=== PATIENT | female | born 1985 | race Caucasian/White ===

== ENCOUNTER 2016-11-07 09:02 | Emergency (ER) | payer SELFPAY ==
[2016-11-07 09:52] VITALS: BP 98/72
--- NOTE | 2016-11-07 10:08 | UC ---
Throat Pain/Nasal Eliezer HPI - HPI Summary HPI Summary: Has been having nasal eliezer, PND, sneezing, "allergy symptoms" for a few days. Yesterday ST suddenly worsened, saw white spots on tonsils. Is not taking anything for allergies except benadryl because she is 11 weeks . - History of Current Complaint Hx Obtained From: Patient Hx Last Menstrual Period: 12/07/15 ?: Yes Onset/Duration: Gradual Onset, Lasting Days Cough: None Associated Signs & Symptoms: Positive: Nasal Discharge. Negative: Fever, Vomiting, Rash <Dipti Sepulveda - Last Filed: 11/07/16 10:24> <Janine Trevino - Last Filed: 11/07/16 11:29> - History of Current Complaint Chief Complaint: UCGeneralIllness Stated Complaint: URI, THROAT PAIN Time Seen by Provider: 11/07/16 09:59 - Allergies/Home Medications Allergies/Adverse Reactions: Allergies Allergy/AdvReac Type Severity Reaction Status Date / Time Prochlorperazine Allergy Anaphylatic Verified 11/07/16 09:52 [From Compazine] Shock SEASONAL ALLERGIES Allergy Coughing Uncoded 11/07/16 09:52 Home Medications: Home Medications Homeopathic Products [Zicam Allergy Relief] 1 tab PO Q6HR PRN 11/07/16 [History Confirmed 11/07/16] [place]-3 Fatty Acids [Fish Oil] 1 tab PO DAILY 11/07/16 [History Confirmed ] Multivit-Min W/Fe-FA [ and Iron] 1 tab PO DAILY 11/07/16 [ History Confirmed 11/07/16] PMH/Surg Hx/FS Hx/Imm Hx Endocrine History Of: Denies: Diabetes, Thyroid Disease Cardiovascular History Of: Denies: Hypertension, Pacemaker/ICD Respiratory History Of: Denies: Asthma GI/ History Of: Denies: Kidney Stones Neurological History Of: Denies: Seizures, Migraine Psychological History Of: Reports: Anxiety - Surgical History Surgical History: Yes Surgery Procedure, Year, and Place: D&C 2014 - Family History Known Family History: Positive: Unknown - Social History Alcohol Use: Rare Substance Use Type: None Smoking Status (MU): Never Smoked Tobacco - Immunization History Most Recent Influenza Vaccination: NEVER Most Recent Tetanus Shot: UTD <Dipti Sepulveda - Last Filed: 11/07/16 10:24> Review of Systems Constitutional: Negative Skin: Negative Eyes: Negative ENT: Sore Throat, Nasal Discharge Respiratory: Negative Cardiovascular: Negative Gastrointestinal: Negative Genitourinary: Negative Motor: Negative Neurovascular: Negative Musculoskeletal: Negative Neurological: Negative Psychological: Negative All Other Systems Reviewed And Are Negative: Yes <Dipti Sepulveda - Last Filed: 11/07/16 10:24> Physical Exam Triage Information Reviewed: Yes Appearance: Well-Appearing Vital Signs: Initial Vital Signs Temp 99.2 F 11/07/16 09:44 Pulse 76 11/07/16 09:44 Resp 20 11/07/16 09:44 BP 98/72 11/07/16 09:44 Pulse Ox 100 11/07/16 09:44 Vital Signs Reviewed: Yes Eye Exam: Normal Eyes: Positive: Conjunctiva Clear ENT: Positive: Nasal congestion, TMs normal. Negative: Pharyngeal erythema, Tonsillar swelling, Tonsillar exudate Dental Exam: Normal Neck exam: Normal Neck: Positive: Supple, Nontender, No Lymphadenopathy Respiratory Exam: Normal Respiratory: Positive: Chest non-tender, Lungs clear, Normal breath sounds, No respiratory distress, No accessory muscle use Cardiovascular Exam: Normal Cardiovascular: Positive: RRR, No Murmur Musculoskeletal Exam: Normal Neurological Exam: Normal Neurological: Positive: Alert Psychological Exam: Normal Skin Exam: Normal <Dipti Sepulveda - Last Filed: 11/07/16 10:24> Vital Signs: Initial Vital Signs Temp 99.2 F 11/07/16 09:44 Pulse 76 11/07/16 09:44 Resp 11/07/16 09:44 BP 98/72 11/07/16 09:44 Pulse Ox 100 11/07/16 09:44 <Janine Trevino - Last Filed: 11/07/16 11:29> Throat Pain/Nasal Course/Dx - Differential Dx/Diagnosis Provider Diagnoses: allergic rhinitis. URI, likely viral <Dipti Sepulveda - Last Filed: 11/07/16 10:24> Discharge <Dipti Sepulveda - Last Filed: 11/07/16 10:24> <Janine Trevino - Last Filed: 11/07/16 11:29> - Discharge Plan Condition: Stable Disposition: HOME Patient Education Materials: Upper Respiratory Infection (ED), Allergic Rhinitis (ED) Referrals: Non Staff,Doctor [Primary Care Provider] - Additional Instructions: Rapid strep negative. As we discussed, diphenhydramine (benadryl) is category B. Topical steroid sprays, such as flonase or nasocort are also considered quite safe for allergy symptoms during . Call or return if you develop increasing fever, shortness of breath, chest pain , bloody sputum, or otherwise worsen. If you have not improved at all after several days, contact your primary care physician or return here. Attestation Statement User Type: Provider - I was available for consult. This patient was seen by the CHRISTOPHER. The patient was not presented to, seen by, or examined by me. -Nataliia <Janine Trevino - Last Filed: 11/07/16 11:29>
== END 2016-11-07 10:38 | disposition home or self-care (01) ==
LOC: UCEAST 09:02
DX: O26.891 Other specified pregnancy related conditions, first trimester (principal); J30.9 Allergic rhinitis, unspecified; J06.9 Acute upper respiratory infection, unspecified; O99.341 Other mental disorders complicating pregnancy, first trimester; F41.9 Anxiety disorder, unspecified; Z3A.11 11 weeks gestation of pregnancy
CPT/HCPCS: 87651; 99211; G0463

== ENCOUNTER 2017-02-01 18:31 | Emergency (ER) | payer MEDICAID, OTHER ==
--- NOTE | 2017-02-01 20:16 | RAD ---
HISTORY: Right leg pain COMPARISONS: None relevant TECHNIQUE: Multiple transverse and longitudinal ultrasound images were obtained of the right lower extremity from the level of the common femoral vein inferiorly through to the infrapopliteal veins using grayscale, color Doppler, and spectral Doppler imaging with and without compression and with augmentation. Comparison images were obtained of the contralateral common femoral vein. FINDINGS: VEINS: The venous system of the right lower extremity is compressible throughout its course, with normal flow on color Doppler imaging and normal response to augmentation on spectral Doppler imaging. SOFT TISSUES: Unremarkable. OTHER FINDINGS: None. IMPRESSION: NO RIGHT LOWER EXTREMITY DEEP VEIN THROMBOSIS
--- NOTE | 2017-02-01 20:30 | ED ---
Baltazar Worley Thomas, scribed for Eric Castaneda MD on 02/01/17 at 1951 . Lower Extremity - HPI Summary HPI Summary: The pt is a 31 y/o F who is 23.5 weeks and referred to the ED by her OBGYN to rule out DVT to her R leg. In the ED, she complaints of R thigh and groin pain that began two weeks ago but worsened 5 days ago. She additionally c/ o redness to her RLE (began 2 weeks ago but worsened five days ago) and swelling to her groin. She denies calf tenderness. The pt rates the pain 4/10. The pain is aggravated by movement and alleviated by nothing. The patient has treated the pain with a stocking DOCUMENT REVIEWER. PMHx: anxiety. PSHx: D&C (2014). SHx: no smoking, rare alcohol use, no illicit drug use. G=2, P=0. - History of Current Complaint Chief Complaint: EDExtremityLower Stated Complaint: 23 1/2 WKS PREG/CRAMPING/PAIN RT LEG Time Seen by Provider: 02/01/17 19:28 Hx Obtained From: Patient, Family/Civil Transportation Engineer - in room Hx Last Menstrual Period: 12/07/15 Onset of Pain: Days - two weeks Onset/Duration: Worse Since - 5 days ago Pain Intensity: 4 Pain Scale Used: 0-10 Numeric Timing: Constant Associated Signs And Symptoms: Positive: Swelling - to her groin, Redness - on her RLE Aggravating Factor(s): Movement Alleviating Factor(s): Nothing Related History: Other - 23.5 weeks - Allergies/Home Medications Allergies/Adverse Reactions: Allergies Allergy/AdvReac Type Severity Reaction Status Date / Time Prochlorperazine Allergy Anaphylatic Verified 11/07/16 09:52 [From Compazine] Shock SEASONAL ALLERGIES Allergy Coughing Uncoded 11/07/16 09:52 PMH/Surg Hx/FS Hx/Imm Hx Previously Healthy: No Endocrine/Hematology History: Denies: Hx Bone Marrow Disease, Hx Diabetes, Hx Sickle Cell Disease, Hx Thyroid Disease, Hx Anemia Cardiovascular History: Denies: Hx Hypertension, Hx Pacemaker/ICD Respiratory History: Denies: Hx Asthma, Hx Sleep Apnea GI History: Denies: Hx Cirrhosis, Hx Crohn's Disease, Hx Gastroesophageal Reflux Disease , Hx Irritable Bowel History: Denies: Hx Kidney Infection, Hx Kidney Stones Musculoskeletal History: Denies: Hx Arthritis, Hx Bursitis, Hx Tendonitis Sensory History: Reports: Hx Contacts or Glasses - CONTACTS Denies: Hx Hearing Aid Opthamlomology History: Reports: Hx Contacts or Glasses - CONTACTS Neurological History: Denies: Hx Headaches, Hx Migraine, Hx Nerve Disease, Hx Seizures Psychiatric History: Reports: Hx Anxiety Denies: Hx Panic Disorder - Surgical History Surgery Procedure, Year, and Place: D&C 2014 Infectious Disease History: No Infectious Disease History: Denies: Hx Hepatitis, History Other Infectious Disease, Traveled Outside the [place] in Last 30 Days - Family History Known Family History: Negative: Other - NEG: blood clots - Social History Alcohol Use: Rare Substance Use Type: Reports: None Smoking Status (MU): Never Smoked Tobacco Review of Systems Positive: Other - POS: R thigh pain, R groin pain, swelling to groin; NEG: calf tenderness Positive: Other - POS: redness to RLE All Other Systems Reviewed And Are Negative: Yes Physical Exam Triage Information Reviewed: Yes Vital Signs On Initial Exam: Initial Vitals Temp Pulse Resp BP Pulse Ox 99.8 F 92 20 123/67 98 02/01/17 18:38 02/01/17 18:38 02/01/17 18:38 02/01/17 18:38 02/01/17 18:38 Vital Signs Reviewed: Yes Appearance: Positive: Well-Appearing, No Pain Distress Skin: Positive: Warm Head/Face: Positive: Normal Head/Face Inspection Eyes: Positive: HENNY ENT: Positive: Hearing grossly normal Respiratory/Lung Sounds: Positive: Breath Sounds Present Abdomen Description: Positive: Soft, Other: - gravid Bowel Sounds: Positive: Present Musculoskeletal: Positive: Other - mild rt calf tenderness. Negative: Raoul Sign Left, Raoul Sign Right Neurological: Positive: Sensory/Motor Intact, Normal Gait Psychiatric: Positive: Affect/Mood Appropriate - Nancy Coma Scale Coma Scale Total: 15 Diagnostics - Vital Signs Vital Signs Temp Pulse Resp BP Pulse Ox 02/01/17 19:30 98.1 F 93 18 121/73 99 02/01/17 18:38 99.8 F 92 20 123/67 98 - Laboratory Lab Statement: Any lab studies that have been ordered have been reviewed, and results considered in the medical decision making process. - Additional Comments Diagnostic Additional Comments: Venous Doppler. Interpreted by radiologist. Impression: No evidence of DVT on RLE Re-Evaluation - Re-Evaluation First Eval Re-Evaluation Time: 20:44 Change: Improved - results d/w pt Lower Extremity Course/Dx - Course Assessment/Plan: The pt is a 31 y/o F who is 23.5 weeks and referred to the ED by her OBGYN to rule out DVT to her R leg. In the ED, she complaints of R thigh and groin pain that began two weeks ago but worsened 5 days ago. She additionally c/o redness to her RLE (began 2 weeks ago but worsened five days ago) and swelling to her groin. She denies calf tenderness. The pt rates the pain 4/10. The pain is aggravated by movement and alleviated by nothing. The patient has treated the pain with a stocking DOCUMENT REVIEWER. PMHx: anxiety. PSHx: D&C (2014 ). SHx: no smoking, rare alcohol use, no illicit drug use. G=2, P=0. Venous Dooppler reveals no evidence for DVT. ED physician has reviewed this radiology report and agrees. Patient is diagnosed with leg pain. Patient will be discharged home with follow up by OBGYN. Patient is agreeable to this plan. - Diagnoses Provider Diagnoses: Leg pain Discharge - Discharge Plan Condition: Stable Disposition: HOME Patient Education Materials: Leg Pain (ED) Referrals: Non Staff,Doctor [Primary Care Provider] - Additional Instructions: Follow up with your OBGYN. The documentation as recorded by the Baltazar boateng Thomas accurately reflects the service I personally performed and the decisions made by me, Eric Castaneda MD.
[2017-02-01 20:56] VITALS: BP 101/59
== END 2017-02-01 20:57 | disposition home or self-care (01) ==
LOC: ED 18:31
DX: M79.651 Pain in right thigh (principal); M79.606 Pain in leg, unspecified
CPT/HCPCS: 99282

== ENCOUNTER 2017-05-18 05:28 | Inpatient (IN) | payer OTHER ==
[2017-05-18] MEDS ORDERED: OBEPIDURAL* 250 ML ONE (07:17)
[2017-05-18 07:35] LABS: Hematocrit 31 % (35-47); Hemoglobin 10.9 g/dl (12.0-16.0); Mean Corpuscular HGB Conc 35 g/dl (31-36); Mean Corpuscular Hemoglobin 30 pg (27-31); Mean Corpuscular Volume 86 fL (80-97); Mean Platelet Volume 10 um3 (7.4-10.4); Red Blood Count 3.63 10^6/ul (4.0-5.4); Red Cell Distribution Width 12 % (10.5-15); White Blood Count 7.7 10^3/ul (3.5-10.8)
[2017-05-18] MEDS ORDERED: Phenylephrine IV* 40 MCG/ML 10 ML SYRINGE IV PUSH PRN ×2 (08:27)
[2017-05-18] MEDS ORDERED: OBEPIDURAL* 250 ML EPIDURAL SCH (09:00)
[2017-05-18] MEDS ORDERED: Oxytocin in LR* 20 UNITS/1,000 ML BAG IVPB ONE (20:59)
[2017-05-18] MEDS ORDERED: Oxytocin in LR* 20 UNITS/1,000 ML BAG IVPB SCH (21:00)
[2017-05-19] MEDS ORDERED: Tetan/Diph/Pertus SYR(Tdap)* 0.5 ML SYR(BOOSTRIX) use SYR IM ONE (00:45)
[2017-05-19] MEDS ORDERED: Glycerin ADULT SUPP PR PRN (00:45)
[2017-05-19] MEDS ORDERED: Misoprostol TAB* 200 MCG PR ONE (00:45)
[2017-05-19] MEDS ORDERED: Oxytocin in LR* 20 UNITS/1,000 ML BAG IVPB SCH (01:00)
[2017-05-19] MEDS: Dibucaine 1% 28.35 GM TUBE PR PRN ×2 (01:30→20:27)
[2017-05-19] MEDS: Witch Hazel PAD* JAR TOPICAL PRN ×2 (01:30→20:27)
[2017-05-19] MEDS ORDERED: Dibucaine 1% 28.35 GM TUBE ONE (01:37)
[2017-05-19] MEDS ORDERED: Witch Hazel PAD* JAR ONE (01:37)
[2017-05-19] MEDS: Ibuprofen TAB* 600 MG PO PRN ×4 (03:15→22:01)
[2017-05-19] MEDS: Acetaminophen TAB* 325 MG PO PRN ×2 (06:35→20:20)
[2017-05-19] MEDS ORDERED: Simethicone TAB* 80 MG TAB.CHEW PO SCH (08:30)
[2017-05-19] MEDS: Docusate CAP* 100 MG PO SCH ×3 (09:14→20:20)
[2017-05-20 06:24] LABS: Hematocrit 25 % (35-47); Hemoglobin 8.8 g/dl (12.0-16.0); Mean Corpuscular HGB Conc 35 g/dl (31-36); Mean Corpuscular Hemoglobin 31 pg (27-31); Mean Corpuscular Volume 87 fL (80-97); Mean Platelet Volume 9 um3 (7.4-10.4); Red Blood Count 2.89 10^6/ul (4.0-5.4); Red Cell Distribution Width 12 % (10.5-15); White Blood Count 9.2 10^3/ul (3.5-10.8)
[2017-05-20] MEDS: Ibuprofen TAB* 600 MG PO PRN ×3 (07:38→19:19)
[2017-05-20 08:28] VITALS: BP 109/68
[2017-05-20] MEDS ORDERED: Ferrous Gluconate TAB* 324 MG TAB PO SCH (09:00)
[2017-05-20] MEDS: Docusate CAP* 100 MG PO SCH ×2 (09:08→13:46)
--- NOTE | 2017-05-20 14:28 | PTEDU ---
Patient Name: CARLITOS GUTIERREZ CARLITOS GUTIERREZ selected video: BBOB: Nurturing Your Gorgeous &Growing Baby by to view on 05/20/2017 at 2:27:50 PM from [id number]
== END 2017-05-20 19:30 | disposition home or self-care (01) | DRG 560 ==
LOC: MCHOBOUT 05:28 → MCHOB 06:17
PROVIDERS: ADMIT Midwife; ATTEND Midwife
PROC: 10E0XZZ Delivery of Products of Conception, External Approach (ICD-10-PCS; principal; 2017-05-19)
PROC: 4A1HXCZ Monitoring of Products of Conception, Cardiac Rate, External Approach (ICD-10-PCS; 2017-05-19)
PROC: 0KQM0ZZ Repair Perineum Muscle, Open Approach (ICD-10-PCS; 2017-05-19)
DX: O42.02 Full-term premature rupture of membranes, onset of labor within 24 hours of rupture (principal); O72.1 Other immediate postpartum hemorrhage; Z88.8 Allergy status to other drugs, medicaments and biological substances; Z3A.38 38 weeks gestation of pregnancy; Z37.0 Single live birth; O70.1 Second degree perineal laceration during delivery; O90.81 Anemia of the puerperium
CPT/HCPCS: 36415; 85025; 86850; 86900; 86901; 90715; A9270-GY

== ENCOUNTER 2019-01-12 22:15 | Inpatient (IN) | payer OTHER ==
[2019-01-12] MEDS ORDERED: Buffered Lidocaine 1% SYRIN* 1 ML/SYRINGE INTRADERM ONE (22:57)
[2019-01-12] MEDS ORDERED: Lactated Ringers 1000 ML Bag* 1,000 ML IV ONE (22:57)
[2019-01-12] MEDS ORDERED: Lactated Ringers 1000 ML Bag* 1,000 ML IV SCH (23:00)
[2019-01-12] MEDS ORDERED: Penicillin G Potassium IV* 5,000,000 UNITS in NS 0.9% 100 ML* 100 ML IVPB ONE (23:00)
[2019-01-12 23:06] LABS: Urine Benzodiazepine Screen None Detected (None Detect); Urine Opiates Screen None Detected (None Detect)
[2019-01-12 23:12] LABS: ABS Eosinophils 0.1 10^3/ul (0-0.6); ABS Lymphocytes 2.2 10^3/ul (1.0-4.8); ABS Monocytes 0.7 10^3/ul (0-0.8); ABS Neutrophils 5.4 10^3/ul (1.5-7.7); Eosinophil % 1.7 %; Hematocrit 31 % (35-47); Hemoglobin 10.8 g/dL (12.0-16.0); Lymphocyte % 26.3 %; Mean Corpuscular HGB Conc 35 g/dL (31-36); Mean Corpuscular Hemoglobin 32 pg (27-31); Mean Corpuscular Volume 90 fL (80-97); Mean Platelet Volume 9.2 fL (7.4-10.4); Platelet Count 177 10^3/uL (150-450); Red Blood Count 3.42 10^6 /uL (3.70-4.87); Red Cell Distribution Width 13 % (10-15); White Blood Count 8.5 10^3/uL (3.5-10.8)
--- NOTE | 2019-01-12 23:22 | HP ---
General Information - Reason for Visit Patient reports leaking of clear fluid with a small gush and continued trickle starting approx 1945. Mild irregular contractions since then. - General Information Maternal Age: 33 Grav: 5 Para: 1 SAB: 2 IEA: 1 Estimated Due Date: 01/09/19 Determined By: LMP Maternal Blood Type and Rh: A Positive - Results this Serology/RPR Result: Non-Reactive Rubella Result: Immune HBsAg Result: Negative HIV Result: Negative GBS Culture Result: Positive Past Medical History Delivery History: Hx Uncomplicated Vaginal Delivery - SVB 05/2017 Pertinent Past Medical History: Non-Contributory - Varicosity R leg Pertinent Past Surgical History: See Records - D&C 2014 Pertinent Family History: Non-Contributory Family History Comment: Lung dz - Antepartal Records Antepartal Records: Reviewed, Complicated by: - GBS positive Review of Systems Constitutional: Comfortable CV Complaint: No Respiratory: Shortness of Breath: No Gastrointestinal: No Nausea/Vomiting, Normal Bowel Movement Genitourinary: Leaking Fluid, No Dysuria, No Bleeding Musculoskeletal: Contractions Neurological: No Headache, No Visual Changes Movement: Normal Exam Allergies/Adverse Reactions: Allergies prochlorperazine Allergy (Verified 01/12/19 23:08) Anaphylatic Shock SEASONAL ALLERGIES Allergy (Uncoded 01/12/19 23:08) Coughing T 98.4 BP 127/75 HR 89 O2 100 RR 16 Lab Values - Entire Visit: Laboratory Tests 01/12/19 01/12/19 22:30 22:55 WBC 8.5 RBC 3.42 L Hgb 10.8 L Hct 31 L MCV 90 MCH 32 H MCHC 35 RDW 13 Plt Count 177 MPV 9.2 Neut % (Auto) 63.6 Lymph % (Auto) 26.3 [place] % (Auto) 8.1 Eos % (Auto) 1.7 Baso % (Auto) 0.3 Absolute Neuts (auto) 5.4 Absolute Lymphs (auto) 2.2 Absolute Monos (auto) 0.7 Absolute Eos (auto) 0.1 Absolute Basos (auto) 0.0 Absolute Nucleated RBC 0.0 Nucleated RBC % 0.0 Urine Opiates Screen None detected Ur Barbiturates Screen None detected Ur Phencyclidine Scrn None detected Ur Amphetamines Screen None detected U Benzodiazepines Scrn None detected Urine Cocaine Screen None detected U Cannabinoids Screen None detected - Measurements Height: 5 ft 3 in Weight: 143 lb Weight in lbs: 143.181886 Body Mass Index (BMI): 25.3 Pre- Weight: 110 lb Weight Gained This : 33 lbs and 0 ozs - Exam Breast: Breast Exam Deferred CVA: No CVA Tenderness Extremities: No Edema Heart: Normal Rhythm/Heart Sounds HEENT: No Significant Findings Lungs: Clear Bilaterally Rectal: Rectal Exam Deferred Reflexes: DTR 2+, - - no clonus Thyroid: - - WNL @ entry to care - Abdominal Exam Abdomen Exam: Non-Tender, Fundal Height Consistent with Dates - Ultrasound/Biophysical Profile Ultrasound Status: Not Done Targeted Exam Findings See L&D Outpatient Visit Provider Note for Findings: Yes Estimated Weight: 8lb Cervical Exam: 4cm, 5cm Effacement: 90% Station: 0 Presenting Part: Vertex Membrane Status: SROM Amniotic Fluid Evaluation: Gross Rupture Bleeding/Discharge: None EFM Findings - External Monitor Findings Baseline Heart Rate: 135 External Monitor Findings: Accelerations Present, No Pattern of Variable or Late Decelerations, Variability Moderate Contractions: Irregular, Mild Contraction Frequency: infrequent Assessment/Plan - Assessment IUP @ 40+3 weeks gestation. Spontaneous rupture of membranes. No evidence metabolic acidemia - Obstetrical Risk Factors Obstetrical Risk Factors: GBS Positive - Plan Plan: Antibiotic Prophylaxis, Admit - Anticipate Vaginal Delivery Plan Comment: Admit to L&D. Initiate GBS prophylaxis. Plan to await active labor, patient to try to rest until then. Will likely want to consider epidural for pain management. Anticipate SVB. - Date/Time of Admission Date of Admission: 01/12/19 Time of Admission: 23:08
[2019-01-13] MEDS ORDERED: Calcium Carbonate CHEW TAB* 500 MG (TUMS) PO PRN (02:32)
[2019-01-13] MEDS: Penicillin G Potassium IV* 2,500,000 UNITS in NS 0.9% 100 ML* 100 ML IVPB SCH ×5 (03:20→20:34)
[2019-01-13] MEDS ORDERED: Nalbuphine* 10 MG/ML 1 ML VIAL IV PRN (03:29)
[2019-01-13] MEDS ORDERED: diPHENhydraMINE IV* 50 MG/ML 1 ml VIAL (BENADRYL) IV PRN (03:29)
[2019-01-13] MEDS ORDERED: hydrOXYzine IM* 50 MG/ML VIAL IM ONE (03:32)
--- NOTE | 2019-01-13 03:57 | PN ---
Progress Note - Progress Note Date of Service: 01/13/19 Note: S: Tired but unable to sleep. Would like to consider therapeutic rest. O: FHT 145, Cat 1 UCs mild, q 4-6 min VSS, afebrile GBS prophylaxis given A: IUP @ 40+4 weeks gestation, latent labor SROM No evidence metabolic acidemia P: Mother has had poor reaction to compazine in past so though patient herself has not tried, we will avoid promethazine and substitute hydroxyzine IM. Plan to get some sleep/rest and consider labor augmentation in am.
--- NOTE | 2019-01-13 08:14 | PN ---
Progress Note - Progress Note Date of Service: 01/13/19 Note: Patient slept a few hours after nubain/vistaril. Feeling "groggy" this am. Discussion of pitocin to augment labor as patient not feeling any contractions. She would like to have a little time to "get up and moving", let body shop worker arrive and partner return[facility]
--- NOTE | 2019-01-13 09:26 | PN ---
Progress Note - Progress Note Date of Service: 01/13/19 SOAP: Subjective: Pt reports mild intermittent ctx. States she feels "shaky." Reports active FM. Reports intermittent leaking of clear fluid. Objective: FHR: Baseline 145, moderate variability, + accels, no decels UCs: mild irregular Cervical exam deferred Has had three doses of prophylactic PCN Temp: 98.2 Assessment: 33 year old at 40 4/7 weeks gestation with membranes ruptured about 14 hours, no evidence of chorioamnionitis, no evidence of acidemia, not in active labor. Plan: Recommended augmentation with Pitocin given increased risk of infection with prolonged rupture of membranes. Pt declines augmentation at this time. Will reassess in 1 hour. Encouraged ambulation, position changes, oral hydration.
--- NOTE | 2019-01-13 10:29 | PN ---
Progress Note - Progress Note Date of Service: 01/13/19 Note: Pt reports that she has been dozing a little, feels occasional intermittent ctx , no change from previous. Reports active FM. Continues to decline Pitocin augmentation at this time, but states "I know I will probably have to eventually , I'm just not ready yet." Will reevaluate in 1 hour.
--- NOTE | 2019-01-13 11:59 | PN ---
Progress Note - Progress Note Date of Service: 01/13/19 Note: Pt eating lunch. Reports no significant change in ctx. Again discussed recommendation to initiate Pitocin augmentation. Pt states she would like to eat lunch and shower and will then likely be willing to initiate augmentation.
--- NOTE | 2019-01-13 13:57 | PN ---
Progress Note - Progress Note Date of Service: 01/13/19 SOAP: Subjective: Pt comfortable, no change in ctx. Feeling nervous, but ready to proceed with Pitocin. Objective: Cervical exam deferred as pt is ruptured and has not been tam regularly FHR: Baseline 140, moderate variability, + accels, no decels UCs: Mild, irregular Temp: 98.9 Assessment: Pt now has been ruptured for about 18 hours. No evidence of chorioamnionitis or acidemia. Plan: Initiate oxytocin augmentation. Continuous EFM. Epidural if desired.
[2019-01-13] MEDS ORDERED: Oxytocin in LR* 20 UNITS/1,000 ML BAG IVPB SCH (14:00)
--- NOTE | 2019-01-13 16:25 | PN ---
Progress Note - Progress Note Date of Service: 01/13/19 SOAP: Subjective: Pt reports that she is feeling ctx stronger although still very tolerable. Reports increased pelvic pressure. Objective: FHR: Baseline 140, moderate variability, + accels, no decels UCs: 3-5 minutes, mild to moderate Cervical exam deferred Pitocin at 8mu/min Temp: 99.8 Assessment: Pt starting to have more contractions, still not in active labor. No evidence of acidemia. Temp elevated above baseline, but not febrile at this time. Plan: Continue Pitocin augmentation. After receiving several doses of PCN pt declined additional PC until in active labor. Pt counseled that PCN is also intended to help prevent intrauterine GBS infection due to prolonged ROM, and she agreed to continued priophylaxis with PCN every 4 hours as ordered.
[2019-01-13] MEDS: Acetaminophen TAB* 325 MG PO PRN (17:06)
--- NOTE | 2019-01-13 18:26 | PN ---
Progress Note - Progress Note Date of Service: 01/13/19 SOAP: Subjective: Pt more uncomfortable with ctx. Requests nitrous oxide for pain relief. Objective: Cervix: 5-6 cm/ 90%/ +1/ vtx UCs: 2-3 minutes FHR: Baseline 140, moderate variability Pitocin at 10 mu/min Assessment: Pt getting into active labor. No evidence of acidemia or chorioamnionitis. Plan: Nitrous oxide for pain relief. Epidural if desired. Continue Pitocin augmentation. Anticipate .
[2019-01-13] MEDS ORDERED: OBEPIDURAL* 250 ML EPIDURAL ONE (18:55)
--- NOTE | 2019-01-13 19:10 | PN ---
Progress Note - Progress Note Date of Service: 01/13/19
[2019-01-13] MEDS ORDERED: Sodium Citrate/Citric Acid* 15 ML UDC PO PRN (19:26)
[2019-01-13] MEDS ORDERED: Famotidine TAB* 20 MG PO PRN (19:26)
[2019-01-13] MEDS ORDERED: Lactated Ringers 1000 ML Bag* 1,000 ML IV ONE (19:26)
[2019-01-13] MEDS ORDERED: EPHEDrine (Pressors)* 50 MG/ML VIAL IV PUSH PRN ×2 (19:26)
[2019-01-13] MEDS ORDERED: Phenylephrine 40 MCG/ML SYRINGE IV PUSH PRN ×2 (19:26)
[2019-01-13] MEDS ORDERED: OBEPIDURAL* 250 ML EPIDURAL SCH (20:00)
[2019-01-13] MEDS ORDERED: Lactated Ringers 1000 ML Bag* 1,000 ML IV SCH (20:00)
--- NOTE | 2019-01-13 22:35 | PN ---
Progress Note - Progress Note Date of Service: 01/13/19 SOAP: Subjective: Pt comfortable with epidural, dozing in bed. Positioned on left side with peanut ball between knees. Objective: Cervix: 7 cm/ 100%/ +1/ vtx FHR: Baseline 140, moderate variability/ + accels, no decels UCs: Q3 minutes, 40-60 seconds Temp: 98.7 Pitocin off since epidural placed Fluid clear Assessment: Pt in active labor, making change, but slowly. No evidence of acidemia or chorioamnionitis, membranes ruptured x 27 hours. Plan: Consider Pitocin augmentation if change continues to be slow. Continue PCN prophylaxis for GBS. Anticipate .
--- NOTE | 2019-01-14 00:56 | PN ---
Progress Note - Progress Note Date of Service: 01/14/19 SOAP: Subjective: Pt reports some pressure with ctx, generally comfortable. Dozing intermittently. Objective: Cervix: 8cm/ 100%/ +1/ vtx FHR: Baseline 140, moderate variability, + accels, no decels UCs: Q 2-4 minutes Temp: 97.8 Assessment: Pt continues to make slow, steady progress. No evidence of acidemia or chorioamnionitis. Plan: Position changes regularly. Anticipate .
[2019-01-14] MEDS: Penicillin G Potassium IV* 2,500,000 UNITS in NS 0.9% 100 ML* 100 ML IVPB SCH (02:10)
[2019-01-14] MEDS ORDERED: Dibucaine 1% 28.35 GM TUBE PR PRN (04:19)
[2019-01-14] MEDS ORDERED: Glycerin ADULT SUPP PR PRN (04:19)
[2019-01-14] MEDS ORDERED: Witch Hazel PAD* JAR TOPICAL PRN (04:19)
--- NOTE | 2019-01-14 04:53 | PROCNOTE ---
[facility] OB: Delivery Note - Delivery A Date of : 01/14/19 Time of : 03:49 [place] Sex: Female Weight at : 3.572 kg Score 1 Minute: 9 Score 5 Minutes: 9 Gestational Age in Weeks and Days at Delivery: 40 Weeks and 5 Days Delivery Method: Spontaneous Vaginal Labor: Spontaneous Did Patient attempt ?: N/A, No Previous Amniotic Fluid: Clear Estimated Blood Loss: 400 Anesthesia/Analgesia: CEI for Labor - Nursery Level of Nursery: Regular/Bedside - Perineum Perineal Injury: Abrasion Only - Not Repaired Perineal Injury Comment: small hemostatic perineal abrasion Perineal Repair: None - Events Delivery Events of Note: Pitocin During Labor - Additional Delivery Notes Additional Delivery Notes: Pt admitted to Labor and Delivery with prelabor rupture of membranes. Pt initially declined augmentation and elected expectant management. GBS prophylaxis initiated. Eventually after active labor did not commence, pt agreed to augmentation with Pitocin. Eventually pt's labor became active. After trial of nitrous oxide pt requested and received an epidural with excellent pain relief. Pt slept until she began to experience increased pressure and was checked and found to be completely dilated. Pt pushed effectively with steady descent, bringing infant to . Pt coached through slow, controlled delivery of the head. Shoulders followed easily. Infant placed on maternal abdomen, dried and stimulated with vigorous cry, HR> 100 bpm. Placenta followed 16 minutes later with gentle cord traction and maternal effort. Pitocin initiated at 250 cc/ hr. Initial bleeding brisk, but stopped quickly with fundal massage and expression of clots. Inspection of the perineum revealed only a small hemostatic abrasion, no repair needed. Infant and mother stable at this time, anticipate normal course.
[2019-01-14] MEDS: Acetaminophen TAB* 325 MG PO PRN ×3 (04:58→20:56)
[2019-01-14] MEDS ORDERED: Lactated Ringers 1000 ML Bag* 1,000 ML IV SCH (05:00)
[2019-01-14] MEDS ORDERED: Oxytocin in LR* 20 UNITS/1,000 ML BAG IVPB SCH (05:00)
[2019-01-14] MEDS: Ibuprofen TAB* 600 MG PO PRN ×3 (08:13→19:56)
[2019-01-14] MEDS: Docusate CAP* 100 MG PO SCH ×3 (08:13→20:56)
[2019-01-15] MEDS: Acetaminophen TAB* 325 MG PO PRN ×3 (02:35→20:30)
[2019-01-15] MEDS: Ibuprofen TAB* 600 MG PO PRN ×4 (02:35→21:30)
[2019-01-15 06:58] LABS: ABS Eosinophils 0.2 10^3/ul (0-0.6); ABS Lymphocytes 2.6 10^3/ul (1.0-4.8); ABS Monocytes 0.6 10^3/ul (0-0.8); ABS Neutrophils 4.9 10^3/ul (1.5-7.7); Eosinophil % 2.5 %; Hematocrit 26 % (35-47); Hemoglobin 9.2 g/dL (12.0-16.0); Lymphocyte % 31.4 %; Mean Corpuscular HGB Conc 35 g/dL (31-36); Mean Corpuscular Hemoglobin 32 pg (27-31); Mean Corpuscular Volume 91 fL (80-97); Mean Platelet Volume 8.5 fL (7.4-10.4); Nucleated Red Blood Cells % 0.1; Platelet Count 176 10^3/uL (150-450); Red Blood Count 2.87 10^6 /uL (3.70-4.87); Red Cell Distribution Width 14 % (10-15); White Blood Count 8.3 10^3/uL (3.5-10.8)
[2019-01-15] MEDS: Docusate CAP* 100 MG PO SCH ×3 (08:29→20:30)
[2019-01-15] MEDS: Ferrous Gluconate TAB* 324 MG TAB PO SCH ×2 (08:29→20:30)
[2019-01-16] MEDS: Acetaminophen TAB* 325 MG PO PRN ×2 (01:55→08:08)
[2019-01-16] MEDS: Ibuprofen TAB* 600 MG PO PRN ×2 (03:28→11:04)
[2019-01-16 07:39] VITALS: BP 104/63
[2019-01-16] MEDS: Docusate CAP* 100 MG PO SCH (08:07)
[2019-01-16] MEDS: Ferrous Gluconate TAB* 324 MG TAB PO SCH (08:08)
== END 2019-01-16 11:30 | disposition home or self-care (01) | DRG 560 ==
LOC: MCHOBOUT 22:15 → MCHOB 23:08
PROVIDERS: ADMIT Midwife; ATTEND Midwife
PROC: 10E0XZZ Delivery of Products of Conception, External Approach (ICD-10-PCS; principal; 2019-01-14)
PROC: 4A1HXCZ Monitoring of Products of Conception, Cardiac Rate, External Approach (ICD-10-PCS; 2019-01-14)
DX: O48.0 Post-term pregnancy (principal); Z37.0 Single live birth; O99.824 Streptococcus B carrier state complicating childbirth; O71.89 Other specified obstetric trauma; O90.81 Anemia of the puerperium; O42.12 Full-term premature rupture of membranes, onset of labor more than 24 hours following rupture; Z3A.40 40 weeks gestation of pregnancy; Z88.8 Allergy status to other drugs, medicaments and biological substances
CPT/HCPCS: 36415; 80307; 85025; 86850; 86900; 86901; A9270-GY; J2300; J2540; J3410